=== PATIENT | female | born 1945 | race Caucasian/White ===

== ENCOUNTER 2021-10-28 14:59 | Emergency (ER) | payer MEDICARE | END 2021-10-28 18:47 | disposition home or self-care (01) | LOC: FER 14:59 | DX: S42.491A Other displaced fracture of lower end of right humerus, initial encounter for closed fracture (principal); I11.0 Hypertensive heart disease with heart failure; I50.9 Heart failure, unspecified; Z88.0 Allergy status to penicillin; Z88.1 Allergy status to other antibiotic agents | CPT/HCPCS: 73070 ==